=== PATIENT | male | born 1990 | race Caucasian/White ===

== ENCOUNTER 2024-01-20 07:31 | Outpatient (CLI) | payer OTHER, SELFPAY ==
--- NOTE | ~2024-01-20 | MR_ITS ---
EXAMINATION: MR knee LT wo con DATE: 01/20/2024 08:14 INDICATION: Medial left knee pain. TECHNIQUE: Magnetic resonance imaging (MRI) of the left knee was performed without intravenous contra st. Sequences included axial PD-weighted FS FSE, coronal PD-weighted FSE and PD-weighted FS FSE, sagi ttal PD-weighted FSE, and sagittal T2-weighted FS FSE. COMPARISON: Left knee radiographs 01/05/2024 FINDINGS: Medial compartment: Medial meniscus is normal. There is a subchondral fracture of medial femoral condyle involving the ce ntral and posterior articular surface with surrounding edema-like marrow signal intensity and low sig nal in the overlying cartilage. The tibial cartilage is normal. Lateral compartment: Lateral meniscus is normal. The lateral compartment cartilage is normal. Patellofemoral compartment: There is cartilage surface irregularity of the medial facet. There is cartilage surface irregularity of the trochlea. Ligaments and tendons: The anterior and posterior cruciate ligaments are normal. There are changes of prior sprains of media l collateral ligament and fibular collateral ligament characterized by thickening and increased signa l intensity approximately. There is mild patellar tendinopathy. Fluid: There is a small knee joint effusion. IMPRESSION: 1. Subchondral fracture of medial femoral condyle. 2. Mild chondrosis of medial and patellofemoral compartments. 3. Small knee joint effusion. Reviewed, dictated and finalized at location [facility]. [facility]
== END 2024-01-20 07:32 ==
LOC: MICIMG 07:31
PROVIDERS: PCP Nurse Practitioner Family; Visit Provider Nurse Practitioner Family
DX: M25.462 Effusion, left knee (principal)
CPT/HCPCS: 73721

== ENCOUNTER 2024-06-13 01:55 | Day surgery (SDC) | payer OTHER, SELFPAY ==
[2024-06-10 15:58] VITALS: BMI 27.5
--- NOTE | 2024-06-10 16:05 | SUR.PREOP ---
Report to the Outpatient Waiting Room, entrance under the green pavilion located off [facility], at time 1000 on date 06/13/24. Planned Procedure Time: __1200__. Time changes happen often and if your time is changed the preop area will call you the afternoon before. - You and your visitor will be asked to self-screen and do not enter if you have any COVID symptoms. - A mask is optional within the hospital at this time. Patients may have clear liquids (water, carbonated beverages, clear teas, apple juice) until 3 hours prior to surgery with a maximum of 20 ounces. - No food from midnight until time of surgery - Infants may have breast milk until 4 hours before surgery, formula 6 hours prior to surgery. - Children will be allowed to drink immediately following surgery. If applicable, please bring a bottle or sippy cup to assist with drinking. Juice, water, soda, and popsicles are readily available. For infants on formula, please bring formula the day of surgery. Pacifiers are allowed. Take the following medications with a SIP of water the morning of surgery: n/a DO NOT STOP ANY OF YOUR OTHER PRESCRIPTION MEDICATIONS PRIOR TO SURGERY ?EXCEPT THE FOLLOWING Medications to discontinue per physician n/a Date to take last dose Please no make-up, nail slovak, hairspray, perfume, deodorant, or body powder the day of surgery. No jewelry (including any body piercings) or valuables the day of surgery, leave them at home. Please take a shower or bath the night before, or the morning of, surgery with an antibacterial soap. Wear comfortable, loose fitting clothing. Children are encouraged to wear pajamas. - Jewelry must be removed prior to entering the operating room. Rings and piercings that are not removed may be cut off. - The hospital will not accept responsibility for valuables. - Please leave all valuables, including medications, at home the day of surgery. If you are going home after surgery, a licensed home delivery driver must drive you home. - NO public transportation without another adult if you receive anesthesia. - We recommend that an adult stay with you for 24 hours following discharge. - We also recommend that you do not drive, make important decision, drink alcoholic beverages, or take any drugs that were not prescribed by your health care provider for at least 24 hours after your discharge time. For Pediatric surgeries, we recommend two adults accompany the child home. Follow any additional instructions given to you from your surgeon. If you or anyone in your household have experienced Covid symptoms in the past week, please notify your surgeon or the nurse liaison at the phone number below for possible testing. Telephone instructions given to __patient__and asked if any additional questions and then verbalized understanding. Patient advised to call surgeon office or pre surgery nurse liaison [phone] if any additional questions.
--- NOTE | 2024-06-12 11:15 | PM.IMHP ---
H&P: HPI History of Present Illness Date/Time: 06/12/24 11:15 Chief Complaint: left knee pain Narrative: 33-year-old with left knee pain. Pain and swelling persistent despite therapy, home exercises, activity modification and anti-inflammatories. MRI demonstrates medial femoral condyle osteochondral lesion. Presents for operative treatment. Review of Systems Constitutional: Constitutional: Denies fever(s) Eyes: Eyes: Denies blurry vision ENT: Reports Normal hearing present Cardiovascular: Cardiovascular: Denies chest pain and Denies dyspnea Respiratory: Respiratory: Denies dyspnea and Denies wheezing Gastrointestinal: Gastrointestinal: Denies abdominal pain Genitourinary: Genitourinary: Denies urinary urgency Musculoskeletal: Musculoskeletal: Reports as per HPI and Denies numbness Integumentary/Breasts: Skin/Breast: Denies changing lesions and Denies sores Neurologic: Reports Normal hearing present, Denies behavioral changes, Denies confusion, Denies numbness and Denies convulsions Psychiatric: Psychiatric: Denies behavioral changes, Denies confusion and Denies hallucinations Endocrine: Endocrine: Denies heat intolerance Hematologic/Lymphatic: Hematologic/Lymphatic: Denies easy bleeding Allergic/Immunologic: Allergic/Immunologic: Denies wheezing PMF Past Medical History Medical History Left knee pain Osteochondral lesion Tibia/fibula fracture Surgical History Surgical History H/O elbow surgery Social History Social History Social History: caffeine use Smoking status: Never smoker Alcohol intake: current Substance use: current Substance use type: marijuana Living arrangements: with family Occupation/Education: occupation 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- [employer] Gender identity (if verbalized by the patient): Male Meds Home Medications and Allergies Home Medications Medication Instructions Recorded Confirmed Type No Home Medications 01/05/24 06/10/24 History Allergies Allergy/AdvReac Type Severity Reaction Status Date / Time No Known Allergies Allergy Mild Verified 01/30/24 11:09 Exam Const: General: healthy appearing; No in distress or confusion Orientation/consciousness: oriented to person, oriented to place, oriented to time and No confusion HENMT: Head: normal to inspection, normocephalic and atraumatic Eyes: Conjunctivae: conjunctivae normal Sclera: sclerae normal Neck: Neck: supple and nontender Resp: Effort & Inspection: normal respiratory effort and no audible wheezes Cardio: Rate: regular rate Rhythm: regular rhythm Skin: General skin exam: no rashes or lesions noted Neuro: General: oriented to person, oriented to place, oriented to time and No confusion Extrem: Right upper extremity: normal to inspection Left upper extremity: normal to inspection Right lower extremity: hip/thigh Details: normal ROM; no tenderness, knee Details: normal to inspection, normal ROM, knee ligament exam normal Details: anterior drawer test normal, posterior drawer test normal, valgus stress test normal, varus stress test normal and Luis Armando?s test normal and Eleazar's Test Details: negative medially and laterally; no tenderness and no swelling and foot Details: normal capillary refill, toes with normal ROM, vascular exam Details: dorsalis pedis pulse present and motor-sensory exam Details: light-touch normal; no tenderness; no edema Left lower extremity: normal to inspection, normal capillary refill, hip/thigh Details: normal ROM; no tenderness, knee Details: tenderness Location: of the patella, of the medial joint line and of the infrapatellar area, swelling Location: of the infrapatellar area (mild), abnormal ROM (active extension -10, flexion 110), knee ligament exa
[2024-06-13] VITALS (7 sets, daily range): BP systolic 117–131; BP diastolic 72–95; PULSE 60–72; RESP 15–67; TEMP 36.1–36.6; O2SAT 99–100; BMI 25.9
[2024-06-13] MEDS: KETOROLAC 15 MG/ML VIAL (*BKC) IV PUSH (10:39)
[2024-06-13] MEDS: ACETAMINOPHEN 500 MG TABLET 1000 MG PO (10:39)
--- NOTE | 2024-06-13 10:47 | P.PNAN_ITS ---
Anes - Initial Pre Proc Eval Procedure: Operation Date: 06/13/24 12:00 Proposed Procedures p Left Knee Arthroscopy, Debridement, Microfracture of Osteochondral Lesion, Proceed As Indicated - Clifton Lopez MD Date/Time: 06/13/24 10:47 Surgeon: Clifton Lopez MD Pre Op Diagnosis: left knee osteochondral lesion Patient Data Age: 33 Gender: M Height: 1.91 m Weight: 94.2 kg Last Vital Signs Temp 36.1 C L 06/13/24 10:35 Pulse 60 06/13/24 10:35 Resp 20 06/13/24 10:35 BP 125/72 06/13/24 10:35 Pulse Ox 100 06/13/24 10:35 Allergies Allergy/AdvReac Type Severity Reaction Status Date / Time No Known Allergies Allergy Mild Verified 06/13/24 10:31 Home Medications Medication Instructions Recorded Confirmed Type No Home Medications 01/05/24 06/13/24 History Patient hx anesthesia problems: none Family hx anesthesia problems: none Results Review: All pre-operative results and documents have been reviewed as part of the pre- operative evaluation. 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 Informed Consent: The patient's anesthetic plan and its attendant risks and benefits were discussed with the patient/family/POA. Questions were solicited and answers provided to the satisfaction of the patient/family/POA.
[2024-06-13] MEDS: LACTATED RINGERS 1,000 ML 30 ML IV CONT ×2 (10:51→13:20)
--- NOTE | 2024-06-13 12:06 | WPDHPUPDATE1 ---
History and Physical Update Update Date/Time: 06/13/24 12:06 History and Physical has been reviewed, including an updated exam of the patient. There are NO changes in the patient's condition. Risks, benefits, and alternatives have been discussed and questions answered. Patient agrees to proceed with procedure.
[2024-06-13] MEDS: ceFAZolin 2 GM/D5W 50 ML 2 GM/50 ML BAG IVPB (12:12)
[2024-06-13] MEDS: BUPIVACAINE/EPINEPHRINE 0.5% 10 ML VIAL INFILTRATE (12:36)
[2024-06-13] MEDS: BUPivacaine HCL 0.25% PF 30 ML VIAL INFILTRATE (13:11)
--- NOTE | 2024-06-13 13:42 | P.OP_ITS ---
Procedure Note - Detailed Date of Procedure 06/13/24 Pre-op Diagnosis left knee osteochondral lesion Post-op Diagnosis Same Procedure Performed Left knee arthroscopy with synovectomy including medial and lateral plica, anterior fat pad and peripatellar synovium, medial femoral condyle microfracture osteochondral lesion Surgeon Clifton Lopez MD Anesthesia General Indications 33-year-old with left knee pain. MRI demonstrates medial femoral condyle osteochondral lesion. Failed conservative treatment. Presents for operative treatment. Findings Left knee medial femoral condyle osteochondral lesion weight-bearing portion 14 x 8 mm. Medial and lateral plica is hypertrophy. Peripatellar hypertrophic synovium. Enlarged anterior fat pad. Medial and lateral meniscus intact. Patellofemoral articulation intact. ACL and PCL intact. Description of Procedure Informed consent given by patient. Operative extremity marked in preoperative holding area. Patient received intravenous antibiotics. Patient brought to operating room and underwent general anesthetic by anesthesia team. Positioned supine on operating room table. Left leg placed into a posterior thigh leg obrien. Foot of the table dropped to 90? and right leg padded out of the field. Time-out performed confirming patient, site of surgery and plan. Left knee prepped and draped in usual sterile surgical fashion using ChloraPrep skin so lution. Standard arthroscopic portals made by using a 11 blade knife for the anterior lateral portal 1st. Capsule penetrated bluntly. Camera and inflow started. The Above operative findings noted. Intra-articular visualization used to position the anterior medial portal using 22 gauge spinal needle. A 11 blade knife used for the skin and blunt penetration of the capsule. medial femoral condyle osteochondral lesion identified and measured. Arthroscopic Wand used to debride loose cartilage pieces. 3 mm osteochondral pick then used to make 3 microfracture entries into the subchondral bone. Bleeding from the entries noted. 4.7 millimeter arthroscopic shaver introduced and synovectomy performed of the anterior fat pad and extensive peripatellar synovium as well as medial and lateral plica. Bleeding points coagulated with Wand. Knee inspected, no loose pieces noted. 1 liter of irrigant infused and suction out. Arthroscopic cannulas removed. Skin closed with 4 nylon interrupted suture. Local anesthetic with 0.25% Marcaine. Sterile dressing applied. Patient awoken from anesthesia, extubated and taken to recovery room in stable condition. All sponge needle and instrument counts correct at the end of the case. Implants None Estimated Blood Loss 10 Tourniquet Time Total Tourniquet Time: 0 Drains No Packing No Pathology None sent Complications None Condition Stable Disposition PACU [facility] Billing Surgery - Charge Forward: Surgery Billing ([id number], [id number])
== END 2024-06-13 14:55 | disposition home or self-care (01) ==
PROVIDERS: Visit Provider Orthopaedic Surgery
PROC: (CPT 29870; principal; 2024-06-13 12:00)
DX: M67.262 Synovial hypertrophy, not elsewhere classified, left lower leg (principal); M79.4 Hypertrophy of (infrapatellar) fat pad; M25.862 Other specified joint disorders, left knee; F12.90 Cannabis use, unspecified, uncomplicated; Z98.890 Other specified postprocedural states
CPT/HCPCS: 29876; 29879; A9270; J0690; J1100; J1885; J2250; J2405; J2704; J3010; J7120